=== PATIENT | female | born 1990 | race Caucasian/White ===

== ENCOUNTER 2018-08-03 15:42 | Outpatient (CLI) | payer OTHER | END 2018-08-03 20:10 | disposition home or self-care (01) | LOC: OBT 15:42 → L-D 15:43 → OBT 20:30 | DX: O46.8X2 Other antepartum hemorrhage, second trimester (principal); Z3A.25 25 weeks gestation of pregnancy | CPT/HCPCS: 76815; 76817 ==

== ENCOUNTER 2018-09-14 15:51 | Emergency (ER) | payer OTHER | END 2018-09-14 18:07 | disposition home or self-care (01) | LOC: FTE 15:51 | DX: O26.893 Other specified pregnancy related conditions, third trimester (principal); Z20.820 Contact with and (suspected) exposure to varicella; Z86.19 Personal history of other infectious and parasitic diseases; Z3A.30 30 weeks gestation of pregnancy | CPT/HCPCS: 99282; Z7502 ==

== ENCOUNTER 2018-11-15 13:15 | Inpatient (IN) | payer OTHER ==
[2018-11-15 14:30] LABS: ADD MAN DIFF? NO
[2018-11-15] MEDS ORDERED: BUTORPHANOL 2 MG INJ IV ×2 (14:30)
[2018-11-15] MEDS ORDERED: OXYTOCIN 30 UNITS/LR 500 ML IV (14:30)
[2018-11-15] MEDS ORDERED: MISOPROSTOL 200 MCG TAB PR (14:30)
[2018-11-15] MEDS ORDERED: LIDOCAINE 1% (MPF) 30 ML INJ INJ (14:30)
[2018-11-15] MEDS ORDERED: CARBOPROST 250 MCG INJ IM (14:30)
[2018-11-15] MEDS ORDERED: METHYLERGONOVINE 0.2 MG INJ IM (14:30)
[2018-11-15] MEDS ORDERED: IBUPROFEN 600 MG TAB PO (14:30)
[2018-11-15 14:34] LABS: WHITE BLOOD COUNT 11.4 10^3/ul (4.8-10.8)
[2018-11-15 14:35] LABS: BASOPHILS % 0.4 % (0.0-2.0); EOSINOPHILS # 0.1 10^3/ul (0.0-0.5); EOSINOPHILS % 0.8 % (0.0-7.0); HEMATOCRIT 33.6 % (37.0-47.0); HEMOGLOBIN 11.1 g/dl (12.0-16.0); LYMPHOCYTES # 1.6 10^3/ul (0.8-2.9); LYMPHOCYTES % 13.9 % (15.0-51.0); MEAN CORPUSCULAR VOLUME 84.6 fl (82.0-101.0); MEAN PLATELET VOLUME 11.2 fl (7.4-10.4); MONOCYTE # 0.6 10^3/ul (0.3-0.9); NEUTROPHILS % 79.3 % (39.0-77.0); PLATELET COUNT 316 10^3/UL (140-415); RED BLOOD COUNT 3.97 10^6/ul (4.20-5.40); RED CELL DISTRIBUTION WIDTH 14.6 % (11.5-14.5)
[2018-11-15] MEDS: LACTATED RINGER'S 1,000 ML IV ×2 (14:38→22:33)
[2018-11-15 14:46] LABS: ADD UMIC YES; UR ASCORBIC ACID NEGATIVE (NEGATIVE); UR BACTERIA FEW /HPF (NONE SEEN); UR BILIRUBIN (Dip) NEGATIVE (NEGATIVE); UR BLOOD (Dip) 1+ mg/dL (NEGATIVE); UR CLARITY CLOUDY (CLEAR); UR COLOR YELLOW (YELLOW); UR GLUCOSE (Dip) NEGATIVE (NEGATIVE); UR KETONES (Dip) NEGATIVE (NEGATIVE); UR LEUKOCYTE ESTERASE (Dip) 2+ Leu/ul (NEGATIVE); UR NITRITE (Dip) NEGATIVE (NEGATIVE); UR RBC 4 /HPF (0-5); UR SQUAMOUS EPITHELIAL CELL MANY /HPF (FEW); UR TOTAL PROTEIN (Dip) NEGATIVE (NEGATIVE); UR UROBILINOGEN (Dip) NEGATIVE (NEGATIVE); UR WBC 15 /HPF (0-5)
[2018-11-15 14:54] LABS: ALANINE AMINOTRANSFERASE 21 IU/L (13-69); ALBUMIN 3.5 g/dl (3.3-4.9); ALBUMIN/GLOBULIN RATIO 1.16; ALKALINE PHOSPHATASE 109 IU/L (42-121); ANION GAP 8 (5-13); ASPARTATE AMINO TRANSFERASE 27 IU/L (15-46); BILIRUBIN,INDIRECT 0.3 mg/dl (0-1.1); BILIRUBIN,TOTAL 0.3 mg/dl (0.2-1.3); BLOOD UREA NITROGEN 10 mg/dl (7-20); CALCIUM 9.1 mg/dl (8.4-10.2); CARBON DIOXIDE 21 mmol/L (21-31); CHLORIDE 110 mmol/L (97-110); CREATININE 0.69 mg/dl (0.44-1.00); Estimated GFR > 60 mL/min (>60); GLUCOSE 123 mg/dl (70-220); INR 0.86; PARTIAL THROMBOPLASTIN TIME 27.7 Sec (23.0-35.0); POTASSIUM 3.6 mmol/L (3.5-5.1); PROTIME 11.8 Sec (11.9-14.9); PT RATIO 0.9; SODIUM 139 mmol/L (135-144); TOTAL PROTEIN 6.5 g/dl (6.1-8.1); URIC ACID 6.4 mg/dl (3.1-7.9)
[2018-11-15 14:55] LABS: ALANINE AMINOTRANSFERASE 24 IU/L (13-69); ALBUMIN 3.4 g/dl (3.3-4.9); ALKALINE PHOSPHATASE 119 IU/L (42-121); ASPARTATE AMINO TRANSFERASE 31 IU/L (15-46); BILIRUBIN,INDIRECT 0.3 mg/dl (0-1.1); BILIRUBIN,TOTAL 0.3 mg/dl (0.2-1.3)
[2018-11-15 14:57] LABS: RAPID PLASMA REAGIN NONREACTIVE (NR)
[2018-11-15 15:25] LABS: HEPATITIS B SURFACE ANTIGEN NEGATIVE (NEGATIVE)
[2018-11-15] MEDS: MISOPROSTOL 50 MCG CAPSULE PO ×2 (15:51→22:32)
[2018-11-16] MEDS: LACTATED RINGER'S 1,000 ML IV ×3 (06:22→16:29)
[2018-11-16] MEDS: MISOPROSTOL 50 MCG CAPSULE PO (08:57)
[2018-11-16] MEDS ORDERED: DIPHENHYDRAMINE 50 MG INJ IV (12:30)
[2018-11-16] MEDS ORDERED: NALOXONE (0.4 MG/ML) INJ IV (12:30)
[2018-11-16] MEDS ORDERED: ONDANSETRON 4 MG INJ IV (12:30)
[2018-11-16] MEDS: OXYTOCIN 30 UNITS/LR 500 ML IV ×3 (12:44→19:51)
[2018-11-16] MEDS: FENTAnyl 2MCG/ML-ROPIV 0.2% 100 ML BAG EPI ×2 (12:55→17:50)
[2018-11-16] MEDS ORDERED: MINERAL OIL LIGHT 10 ML VIAL TOP (16:30)
[2018-11-16] MEDS ORDERED: CARBOPROST 250 MCG INJ IM (20:00)
[2018-11-16] MEDS ORDERED: MISOPROSTOL 200 MCG TAB PR (20:00)
[2018-11-16] MEDS ORDERED: OXYTOCIN 30 UNITS/LR 500 ML IV (20:00)
[2018-11-16] MEDS ORDERED: METHYLERGONOVINE 0.2 MG INJ IM (20:00)
[2018-11-16] MEDS ORDERED: HYDROCODONE/APAP (5/325) TAB PO (20:00)
[2018-11-17] MEDS: IBUPROFEN 600 MG TAB PO ×5 (00:12→23:30)
[2018-11-17] MEDS: OXYTOCIN 30 UNITS/LR 500 ML IV (00:16)
[2018-11-17] MEDS: LACTATED RINGER'S 1,000 ML IV* ×3 (01:08→08:01)
[2018-11-17] MEDS: LANOLIN HPA 1 PKT TOP (05:55)
[2018-11-17 08:28] LABS: ADD MAN DIFF? NO
[2018-11-17 08:36] LABS: BASOPHIL # 0.1 10^3/ul (0.0-0.1); BASOPHILS % 0.4 % (0.0-2.0); EOSINOPHILS # 0.2 10^3/ul (0.0-0.5); EOSINOPHILS % 1.1 % (0.0-7.0); HEMATOCRIT 34.6 % (37.0-47.0); HEMOGLOBIN 11.3 g/dl (12.0-16.0); LYMPHOCYTES # 2.6 10^3/ul (0.8-2.9); LYMPHOCYTES % 15.5 % (15.0-51.0); MEAN CORPUSCULAR HEMOGLOBIN 27.7 pg (29.0-33.0); MEAN CORPUSCULAR HGB CONC 32.7 g/dl (32.0-37.0); MEAN CORPUSCULAR VOLUME 84.8 fl (82.0-101.0); MEAN PLATELET VOLUME 11.1 fl (7.4-10.4); MONOCYTE # 1.1 10^3/ul (0.3-0.9); MONOCYTES % 6.7 % (0.0-11.0); NEUTROPHIL # 12.6 10^3/ul (1.6-7.5); NEUTROPHILS % 75.7 % (39.0-77.0); PLATELET COUNT 296 10^3/UL (140-415); RED BLOOD COUNT 4.08 10^6/ul (4.20-5.40)
[2018-11-17 08:36] LABS: WHITE BLOOD COUNT 16.7 10^3/ul (4.8-10.8)
[2018-11-17] MEDS: SENNA/DOCUSATE NA (8.6MG/50MG) TAB PO ×2 (09:26→20:42)
[2018-11-18] MEDS: IBUPROFEN 600 MG TAB PO (05:41)
[2018-11-18] MEDS: SENNA/DOCUSATE NA (8.6MG/50MG) TAB PO (08:57)
[2018-11-18] MEDS: DIPHTH/TET/ACEL PERTUSS (ADULT) 0.5 ML VIAL IM* (09:46)
== END 2018-11-18 11:45 | disposition home or self-care (01) | DRG 807 ==
LOC: L-D 13:15 → PP1 11-16 21:27
PROC: 10E0XZZ Delivery of Products of Conception, External Approach (ICD-10-PCS; principal; 2018-11-16)
PROC: 3E033VJ Introduction of Other Hormone into Peripheral Vein, Percutaneous Approach (ICD-10-PCS; 2018-11-16)
DX: O48.0 Post-term pregnancy (principal); Z37.0 Single live birth; O13.4 Gestational [pregnancy-induced] hypertension without significant proteinuria, complicating childbirth; Z3A.40 40 weeks gestation of pregnancy
CPT/HCPCS: 62322; 76815; 80053; 80076; 81001; 84560; 85025; 85384; 85610; 85730; 86592; 86850; 86900; 86901; 87340